=== PATIENT | male | born 1965 | race Caucasian/White ===

== ENCOUNTER 2016-09-01 09:50 | Day surgery (SDC) | payer OTHER ==
[~2016-09-01] VITALS: Ht 177.8 cm; Wt 97.7 kg
[2016-09-01] VITALS (20 sets, daily range): BP systolic 114–134; BP diastolic 76–91; PULSE 64–81; RESP 13–25; Ht 177.8 cm; Wt 97.7 kg
[2016-09-01] MEDS ORDERED: ACET325T45 PO (10:54)
[2016-09-01] MEDS ORDERED: METO-448 PO (10:54)
[2016-09-01] MEDS ORDERED: ATOR20TA38 PO (10:54)
[2016-09-01] MEDS ORDERED: ASPI-664 PO (10:54)
[2016-09-01] MEDS ORDERED: PANT40TA4 PO (10:54)
[2016-09-01] MEDS ORDERED: FENTAnyl 50 MCG/ML VIAL ONE (12:27)
[2016-09-01] MEDS ORDERED: MIDAZOLAM 1 MG/ML 2 ML INJ ONE (12:27)
[2016-09-01] MEDS ORDERED: HEPARIN 1000 UNITS/ML 10 ML INJ ONE (12:29)
[2016-09-01] MEDS ORDERED: IODIXANOL LOCM 100 ML BTL ONE (12:30)
[2016-09-01] MEDS ORDERED: VERAPAMIL 5 MG INJ ONE (12:30)
[2016-09-01] MEDS ORDERED: LIDOCAINE 1% (MDV) 20 ML INJ ONE (12:30)
[2016-09-01] MEDS ORDERED: NITROGLYCERIN (IC) 100 MCG/ML INJ ONE (12:30)
[2016-09-01] MEDS ORDERED: HEPARIN 1000 UNITS/NS (A-LINE) 1,000 ML ONE (12:30)
[2016-09-01] MEDS ORDERED: SOD CHLORIDE 0.9% 1,000 ML IV SCH (13:49)
--- NOTE | 2016-09-01 13:57 | OPR ---
Date/Time of Note Date/Time of Note DATE: 09/01/16 TIME: 13:51 Operative Report Free Text/Dictation Procedure Date: 09/01/2016 Procedures Performed: 1)Left heart catheterization with selective left and right coronary angiography. 2)Left ventricle angiography Pre-operative Diagnosis:NSTEMI Post-operative Diagnosis:NSTEMI, nonobstructive CAD Indications:50 yo M with a h/o HTn who presented with chest pain and was found to have an NSTEMI (peak trop 12). Description of Procedure: After informed consent, the patient was brought to the cardiac catheterization lab. The procedure site was prepped and draped in usual manner. The patient was premedicated with versed 1.5mg and fentanyl 50 mcg. 2mL lidocaine was injected into the right wrist. Next using the posterior wall technique, the 6/ 5 [place] sheath was inserted into the right radial artery. Next using the Tig 4.0 and JL3.0, selective angiography of the left and right coronary arteries were obtained. The pigtail was then advanced into the ventricle and hemodynamics obtained. Left ventricle angiography was obtained for better clinical assessment. Next all equipment was removed and hemostasis was obtained by TR band. Findings: Anatomy/Hemodynamics: Left main: normal LAD:luminal irregularities Diagonal:ostial 40% Circumflex: Obtuse marginal:luminal irregularities. There is a more proximal OM that is ~ 1.5mm in size and is either a small artery or occluded proximally. Either way it is too small for revascularization. RCA:20-30% disease throughout, distal 40% at bifurcation of PDA/PLV PDA:luminal irregularities PLV:luminal irregularities LV angiography: EF 55%, no significant wall motion abnormalities or LV thrombus seen. LV-Ao:no pullback gradient LVEDP:11mmHg Contrast used:75 mL Fluoroscopy time:6 min Assessment: NSTEMI Nonobstructive CAD, no revascularization required Plan: -would still treat with dual antiplatelet therapy with ASA and plavix for at least one year though plavix can be stopped for procedures as no stent -continue high dose statin therapy -metoprolol -transfer back to [facility] for overnight observation -outpt cardiology f/u NARCISA IBANEZ Sep 01, 2016 13:57
[2016-09-01] MEDS ORDERED: morphine 2 MG INJ IV PRN (14:00)
== END 2016-09-01 17:14 | disposition home or self-care (01) ==
LOC: SDS 09:50 → CCL 09:50 → SDS 17:14
PROVIDERS: ATTEND Internal Medicine Interventional Cardiology
DX: I21.4 Non-ST elevation (NSTEMI) myocardial infarction (principal); I25.10 Atherosclerotic heart disease of native coronary artery without angina pectoris; I10 Essential (primary) hypertension
CPT/HCPCS: 93458; C1769; C1887; J1644; J2250; J3010; Q9967